=== PATIENT | female | born 1970 | race Caucasian/White ===

== ENCOUNTER 2021-09-17 12:43 | Emergency (ER) | payer OTHER ==
[2021-09-17] MEDS ORDERED: BAMLANIVIMAB (EUA) 700 MG, ETESEVIMAB (EUA) 1,400 MG in SODIUM CHLORIDE 0.9% 100 ML IVPB ONE (15:00)
[2021-09-17] MEDS ORDERED: SODIUM CHLORIDE 0.9% 50 ML IVPB ONE (15:00)
--- NOTE | 2021-09-17 16:19 | ED ---
URI HPI - General Source: patient Mode of arrival: ambulatory Limitations: no limitations <Tracy Schreiber - Last Filed: 09/17/21 16:16> <Freedom Hayden - Last Filed: 09/17/21 17:37> - General Chief Complaint: Upper Respiratory Infection Stated Complaint: Covid + Time Seen by Provider: 09/17/21 15:22 - History of Present Illness Initial Comments: 51-year-old female patient presents to the emergency department today for evaluation after having a positive COVID at [facility]. She is coming in requesting the monoclonal antibody infusion. States she has been sick for the last 2-3 days and tested positive yesterday. She reports cough, congestion, body aches. Reports mild fever. Has been taking Tylenol Motrin. She denies any significant shortness of breath. Denies nausea, vomiting, or diarrhea. She does have history of asthma and takes Symbicort daily. Patient denies any recent rash, chest pain, abdominal pain, constipation, back pain, numbness, tingling, dizziness, weakness, hematuria, dysuria, urinary urgency, urinary frequency, headache, visual changes, or any other complaints. (Tracy Schreiber) - Related Data Allergies Allergy/AdvReac Type Severity Reaction Status Date / Time clonazepam [From Klonopin] Allergy Unknown Verified 09/17/21 13:28 moxifloxacin [From Avelox] Allergy Unknown Verified 09/17/21 13:28 oseltamivir [From Tamiflu] Allergy Unknown Verified 09/17/21 13:28 Sulfa (Sulfonamide Allergy Unknown Verified 09/17/21 13:28 Antibiotics) Review of Systems ROS Other: All systems not noted in ROS Statement are negative. <Tracy Schreiber - Last Filed: 09/17/21 16:16> ROS Other: All systems not noted in ROS Statement are negative. <Freedom Hayden - Last Filed: 09/17/21 17:37> ROS Statement: Those systems with pertinent positive or pertinent negative responses have been documented in the HPI. Past Medical History Past Medical History: Asthma History of Any Multi-Drug Resistant Organisms: None Reported Past Surgical History: Hysterectomy Past Psychological History: Anxiety, Depression Smoking Status: Never smoker Past Alcohol Use History: Occasional Past Drug Use History: None Reported <Tracy Schreiber - Last Filed: 09/17/21 16:16> General Exam Limitations: no limitations General appearance: alert, in no apparent distress, other (This is a well- developed, well-nourished adult female in no acute distress.) ENT exam: Present: normal exam, normal oropharynx, mucous membranes moist Respiratory exam: Present: normal lung sounds bilaterally. Absent: respiratory distress, wheezes, rales, rhonchi, stridor Cardiovascular Exam: Present: regular rate, normal rhythm, normal heart sounds. Absent: systolic murmur, diastolic murmur, rubs, gallop, clicks Neurological exam: Present: alert, oriented X3, CN II-XII intact Psychiatric exam: Present: normal affect, normal mood Skin exam: Present: warm, dry, intact, normal color. Absent: rash <Tracy Schreiber - Last Filed: 09/17/21 16:16> Course Vital Signs 09/17/21 09/17/21 13:24 16:48 Temperature 98.9 F 98.6 F Pulse Rate 99 92 Respiratory 20 18 Rate Blood Pressure 112/73 105/68 O2 Sat by Pulse 95 96 Oximetry Medical Decision Making <Tracy Schreiber - Last Filed: 09/17/21 16:16> - Medical Decision Making 51-year-old female patient presents to the emergency department today requesting monoclonal antibody infusion after testing positive for COVID-19 at [facility]. Copy of her positive result was placed on the chart. Physical examination is unremarkable. Lungs are clear to auscultation with good air movement. Vital signs are unremarkable. She did meet criteria based on having history of asthma taking Symbicort daily. She will be started to follow up with her primary care physician for recheck in 1-2 days. Return parameters were discussed in detail. She verbalizes understanding and agrees with this plan. My attending is Dr. Mayer. (Tracy Schreiber) Disposition Is patient prescribed a controlled substance at d/c from ED?: No <Tracy Schreiber - Last Filed: 09/17/21 16:16> Time of Disposition: 17:37 <Freedom Hayden - Last Filed: 09/17/21 17:37> Clinical Impression: COVID-19 Disposition: HOME SELF-CARE Condition: Good Instructions (If sedation given, give patient instructions): Coronavirus Disease 2019 (COVID-19) Additional Instructions: Tips to help you feel better: -Maintain adequate fluid intake - especially water. -Rest, you are healing your body will require extra sleep. -Eat even if you do not feel like it - broth, jello, toast are fine if you cannot eat full meals. -Take tylenol and motrin alternating (if you have no allergies or have not been instructed to avoid these medications) to help with body aches and fevers. -Obtain over the counter vitamin C, zinc, and vitamin D3. -Take medications as prescribed. Follow-up with your primary care physician for recheck in 1-2 days. Return for any new, worsening, or concerning symptoms. Referrals: Nir Toussaint MD [Primary Care Provider] - 1-2 days
[2021-09-17 16:51] VITALS: BP 105/68; PULSE 92; RESP 18; TEMP 98.6
== END 2021-09-17 17:52 | disposition home or self-care (01) ==
LOC: EC 12:43
DX: U07.1 COVID-19 (principal); J45.909 Unspecified asthma, uncomplicated; F41.9 Anxiety disorder, unspecified; F32.A Depression, unspecified; Z88.1 Allergy status to other antibiotic agents; Z88.2 Allergy status to sulfonamides; Z90.710 Acquired absence of both cervix and uterus
CPT/HCPCS: 99283; M0245